=== PATIENT | male | born 1985 | race Caucasian/White ===

== ENCOUNTER 2019-01-07 17:25 | Emergency (ER) | payer BC ==
[2019-01-07] MEDS ORDERED: Tetracaine 0.5% OPTH.SOL 15ML* BTL LEFT EYE ONE (17:45)
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
[2019-01-07] MEDS ORDERED: Fluorescein Sodium TOPICAL* 1 MG TEST STRIP OPHTHALMIC ONE (18:28)
[2019-01-07] MEDS ORDERED: Tetracaine 0.5% OPTH.SOL 4 ML* 1 DROP BTL LEFT EYE ONE (18:30)
[2019-01-07] MEDS ORDERED: Cyclopentolate 1% OPTH.SOL* 2 ML BTL LEFT EYE ONE (19:18)
[2019-01-07] MEDS ORDERED: HYDROcodone/ACETAMIN 5-325 MG* 1 TAB PO ONE (19:20)
[2019-01-07 19:43] VITALS: BP 139/71
== END 2019-01-07 19:42 | disposition home or self-care (01) ==
LOC: ED 17:25
DX: S05.8X2A Other injuries of left eye and orbit, initial encounter (principal); W20.8XXA Other cause of strike by thrown, projected or falling object, initial encounter; H20.00 Unspecified acute and subacute iridocyclitis; H54.62 Unqualified visual loss, left eye, normal vision right eye
CPT/HCPCS: 99282; A9270-GY